=== PATIENT | female | born 1975 | race African-American/Black ===

== ENCOUNTER 2020-03-03 21:57 | Emergency (ER) | payer OTHER ==
[~2020-03-03] VITALS: Ht 151.1 cm; Wt 45.0 kg
[2020-03-04] MEDS ORDERED: MAGNESIUM/ALUMINUM HYDROXIDE/SIMETHICONE 30ML UDC PO STA (00:04)
[2020-03-04 00:34] LABS: BASOPHILS % 0.9 % (0.0-2.0); EOSINOPHILS % 4.8 % (0.0-5.0); HEMATOCRIT. 38.6 % (36.0-48.0); HEMOGLOBIN. 12.8 g/dL (12.0-16.0); LYMPHOCYTES % 41.5 % (20.0-50.0); MEAN CORPUSCULAR HEMOGLOBIN 28.4 pg (28.0-32.0); MEAN CORPUSCULAR VOLUME 85.7 fL (81.0-99.0); MEAN PLATELET VOLUME 8.9 fl (7.4-10.4); MONOCYTES % 14.5 % (2.0-8.0); NEUTROPHILS % 38.3 % (40.0-76.0); PLATELET 213 x1000/uL (130-400); RED BLOOD CELL COUNT 4.51 mill/uL (4.2-5.4); RED CELL DISTRIBUTION WIDTH 13.1 % (11.6-14.6)
[2020-03-04 00:41] LABS: CHLORIDE 107 mEq/L (98-107)
[2020-03-04 02:20] VITALS: BP 105/75
== END 2020-03-04 02:23 | disposition home or self-care (01) ==
LOC: ER 21:57
DX: R10.13 Epigastric pain (principal); Z98.890 Other specified postprocedural states
CPT/HCPCS: 36415; 76705; 80053; 85025; 99284